=== PATIENT | female | born 1975 | race Caucasian/White ===

== ENCOUNTER → 2017-11-14 14:22 | Outpatient (CLI) | payer OTHER, SELFPAY ==
[2017-11-14 15:39] LABS: Add Manual Diff / Slide Review NO; Basophils Percent Auto 0.2 % (0-2); Eosinophils Percent Auto 2.2 % (2-4); Hematocrit 40.2 % (36-46); Hemoglobin 13.8 g/dL (12.0-16.0); Lymphocytes Percent Auto 26.8 % (25-40); Mean Corpuscular HGB Conc 34.5 % (30-36); Mean Corpuscular Hemoglobin 30.9 PG (26-34); Mean Corpuscular Volume 89.5 fL (80-100); Neutrophils Absolute Auto 7500 /uL (3000-5900); Neutrophils Percent Auto 64.8 % (50-75); Platelet Count 264 X10^3/uL (150-400); Red Blood Cell Count 4.49 X10^6/uL (4.0-5.2); White Blood Cell Count 11.7 X10^3/uL (4.5-11.0)
[2017-11-14 18:12] LABS: Alanine Aminotransferase 32 IU/L (9-52); Albumin 4.5 g/dL (3.5-5.0); Albumin Globulin Ratio 1.9 (1.0-2.8); Alkaline Phosphatase 62 U/L (38-126); Aspartate Aminotransferase 22 IU/L (14-36); BUN Creatinine Ratio 18.8 (6-22); Bilirubin Total 0.4 mg/dL (0.2-1.3); Calcium 9.7 mg/dL (8.4-10.2); Estimated Glomerular Filt Rate > 60.0 mL/min (>60); Globulin 2.4 g/dL (1.7-4.1); Glucose 78 mg/dL (70-100); HEMOLYSIS < 15 (0-50); Potassium 4.5 mmol/L (3.4-5.1); Sodium 141 mmol/L (137-145); Total Protein 6.9 g/dL (6.3-8.2)
[2017-11-14 18:38] LABS: Thyroid Stimulating Hormone 1.24 uIU/mL (0.47-4.68)
== END ==
PROVIDERS: Family Provider Family Medicine; PCP Family Medicine; Visit Provider Internal Medicine
DX: G47.8 Other sleep disorders (principal); F41.8 Other specified anxiety disorders
CPT/HCPCS: 36415; 80053; 84443; 85025

== ENCOUNTER 2018-05-05 07:11 | Emergency (ER) | payer OTHER, SELFPAY ==
[2018-05-05 07:34] VITALS: BP 90/62; PULSE 86; RESP 18; TEMP 36.7; O2SAT 97; BMI 33.4
--- NOTE | 2018-05-05 08:23 | ED.EXTPRO ---
HPI - Extremity Problem General Chief complaint: Extremity Problem,Nontraumatic Stated complaint: left leg pain Time Seen by Provider: 05/05/18 07:51 Source: patient and family Mode of arrival: ambulatory Limitations: no limitations History of Present Illness HPI Narrative: 42-year-old smoking female presents with a chief complaint of severe left hip and lateral thigh pain since last evening. She denies any specific trauma but does state that the pain started while having intercourse and she was moving her leg into an awkward position. She felt a pop and has had pain ever since. Her pain is worse with motion and improves with rest. She denies any numbness, tingling or weakness. She denies any trouble bowel or bladder control. MD Complaint: extremity pain Onset (ago): hour(s) Pain Consistency: constant Location: left Quality: burning and stabbing Radiation: distal Relieving factors: rest Exacerbating factors: walking and exertion Associated symptoms: denies other symptoms Related Data Previous Rx's Medication Instructions Recorded bupropion HCl SR 150 mg tablet,12 150 mg PO QAM #90 tab 12/06/17 hr sustained-release citalopram 40 mg tablet 40 mg PO QDAY #90 tab 12/06/17 norethindrone acetate 1 mg-ethinyl 1 tab PO QDAY #3 tab 12/06/17 estradiol 20 mcg tablet spironolactone 50 mg tablet 50 mg PO DAILY #90 tab 03/17/18 cyclobenzaprine 10 mg PO TID PRN #14 tab 05/05/18 ketorolac 10 mg PO Q6H PRN #14 tab 05/05/18 Allergies Allergy/AdvReac Type Severity Reaction Status Date / Time codeine Allergy Mild ITCHY Verified 05/05/18 07:45 Review of Systems Review of Systems All systems reviewed & are unremarkable except as noted in HPI and below Constitutional Denies chills, Denies fever(s), Denies lethargy and Denies weakness Eyes Denies change in vision, Denies eye discharge, Denies irritation and Denies loss of vision ENT Ears, Nose, Mouth, and Throat: Denies change in voice, Denies neck pain and Denies sore throat Cardiovascular Denies chest pain, Denies irregular heart rhythm, Denies lightheadedness, Denies palpitations, Denies dyspnea, Denies dyspnea on exertion and Denies orthopnea Respiratory Denies cough, Denies dyspnea, Denies dyspnea on exertion and Denies wheezing Gastrointestinal Gastrointestinal: Denies abdominal pain, Denies change in bowel habits, Denies diarrhea, Denies nausea and Denies vomiting Genitourinary Denies hematuria, Denies flank pain, Denies urinary incontinence and Denies urinary urgency Musculoskeletal Reports limited range of motion, Reports muscle cramps and Denies neck pain Integumentary/Breasts Denies pruritus, Denies erythema, Denies rash and Denies wounds Neurologic Denies confusion, Denies loss of vision and Denies weakness Psychiatric Denies anxiety, Denies confusion, Denies depression, Denies homicidal ideation and Denies suicidal ideation Endocrine Denies palpitations Hematologic/Lymphatic Denies easy bruising Allergic/Immunologic Denies wheezing [facility] Medical History Anxiety (Chronic) Depression (Chronic) Acne (Resolved) HPV (human papilloma virus) infection (Resolved) Surgical History No history of previous surgery (Resolved 06/2014) Social History Smoking Status: Current every day smoker Exam Narrative Exam Narrative: GENERAL: 42-year-old female is anxious and upset, obviously in pain, clutching her left hip and thigh HEAD: Atraumatic. Normocephalic. No temporal or scalp tenderness. EYES: Pupils equal round and reactive. Extraocular motions intact. No scleral icterus. No injection or drainage. ENT: Nose without bleeding, purulent drainage or septal hematoma. Throat without erythema, tonsillar hypertrophy or exudate. Uvula midline. Airway patent. NECK: Trachea midline. No JVD or lymphadenopathy. Supple, nontender, no meningeal signs. CARDIOVASCULAR: Regular rate and rhythm without murmurs, gallops, or rubs. RESPIRATORY: Clear to auscultation. Breath sounds equal bilaterally. No wheezes, rales, or rhonchi. GASTROINTESTINAL: Abdomen soft, non-tender, nondistended. No hepato-splenomegaly, or palpable masses. No guarding. EXTREMITIES: No shortening or external rotation noted. Patient has full and surprisingly painless range of motion at the hip. She has no pain with axial loading of her lower extremity through the knee and hip. There is no obvious deformity. There is no loss of sensation or pulse BACK: Nontender without deformity or crepitance. No flank tenderness. NEURO: AOx3. SKIN: No rash or erythema. Initial Vital Signs Initial Vital Signs: Vital Signs Temperature 98.0 F 05/05/18 07:34 Pulse Rate 86 05/05/18 07:34 Respiratory Rate 18 05/05/18 07:34 Blood Pressure 90/62 05/05/18 07:34 Pulse Oximetry 97 05/05/18 07:34 Course Orders Ordered: Discontinued Medications Ketorolac Tromethamine (Toradol) 60 mg IM NOW ONE Stop: 05/05/18 10:04 Last Admin: 05/05/18 10:21 Dose: 60 mg Vital Signs - 8 hr 05/05/18 07:34 Temperature 98.0 F Pulse Rate 86 Respiratory Rate 18 Blood Pressure 90/62 Pulse Oximetry 97 Discharge Plan Departure Patient Disposition: Home Clinical Impression: Hip strain Discharge Date/Time: 05/05/18 10:58 Interventions: ED Discharge Assessment Last Done: 05/05/18 10:58 Instructions: Muscle Strain Activity Restrictions/Additional Instructions: *You have been diagnosed with [ left hip strain] *What to do: *Take medications as directed: Her prescriptions have been electronically transmitted to [facility] at your request *Follow up with your primary care provider in 2-3 days, call for an appointment. Let them know you were seen in the Emergency Department and that we ask that you be seen in follow up *Return to ER if you should have any new, worsening or concerning symptoms Prescriptions: New cyclobenzaprine 10 mg tablet 10 mg PO TID PRN (Reason: muscle spasm) Qty: 14 RF: 0 ketorolac 10 mg tablet 10 mg PO Q6H PRN (Reason: pain) Qty: 14 RF: 0 No Action norethindrone ac-eth estradiol [June07/16 (21)] 1-20 mg-mcg tablet 1 tab PO QDAY Qty: 3 RF: 0 bupropion HCl [Wellbutrin SR] 150 mg tablet extended release 12 hr 150 mg PO QAM Qty: 90 RF: 0 citalopram [Celexa] 40 mg tablet 40 mg PO QDAY Qty: 90 RF: 0 spironolactone 50 mg tablet 50 mg PO DAILY Qty: 90 RF: 0 Referrals: Cousins,Eleanor, MD [Physician] -
--- NOTE | 2018-05-05 08:50 | DI.RAD.S_ITS ---
PROCEDURE: XR HIP W PEL IF DONE LT 2V INDICATIONS: injury last night, L hip pain TECHNIQUE: AP pelvis with lateral view(s) of the left hip(s). COMPARISON: None. FINDINGS: Bones: Mild left hip joint osteoarthritis is seen. No fractures or dislocations. No evidence of avascular necrosis. Pelvic ring appears intact. No suspicious bony lesions. Soft tissues: The visualized bowel gas pattern is normal. No suspicious soft tissue calcifications. IMPRESSION: Mild left hip joint osteoarthritis. No hip fracture or dislocation. Dictated by: Ab Manuel M.D. on 05/05/2018 at 9:34 Approved by: Ab Manuel M.D. on 05/05/2018 at 9:35
[2018-05-05 10:19] VITALS: BP 100/56; PULSE 64; RESP 16; O2SAT 98
[2018-05-05] MEDS: KETOROLAC 60 MG/2 ML VIAL IM (10:21)
== END 2018-05-05 10:58 | disposition home or self-care (01) ==
PROVIDERS: Emergency Provider Emergency Medicine
DX: S76.012A Strain of muscle, fascia and tendon of left hip, initial encounter (principal); X50.1XXA Overexertion from prolonged static or awkward postures, initial encounter
CPT/HCPCS: 73502; 96372; 99282; 99283; J1885

== ENCOUNTER → 2019-04-06 07:12 | Outpatient (CLI) | payer OTHER, SELFPAY ==
[2019-04-06 09:10] LABS: Hematocrit 41.4 % (36-46); Hemoglobin 14.1 g/dL (12.0-16.0); Mean Corpuscular HGB Conc 34.1 % (30-36); Mean Corpuscular Hemoglobin 31.3 PG (26-34); Mean Corpuscular Volume 91.9 fL (80-100); Platelet Count 282 X10^3/uL (150-400); Red Blood Cell Count 4.51 X10^6/uL (4.0-5.2); Red Cell Distribution Width 12.4 % (11.6-14.8); White Blood Cell Count 7.1 X10^3/uL (4.5-11.0)
[2019-04-06 09:28] LABS: Alanine Aminotransferase 21 IU/L (9-52); Albumin 4.1 g/dL (3.5-5.0); Albumin Globulin Ratio 1.5 (1.0-2.8); Alkaline Phosphatase 47 U/L (38-126); Aspartate Aminotransferase 24 IU/L (14-36); BUN Creatinine Ratio 21.4 (6-22); Bilirubin Total 0.4 mg/dL (0.2-1.3); Blood Urea Nitrogen 15 mg/dL (7-17); Calcium 8.9 mg/dL (8.4-10.2); Carbon Dioxide 28 mmol/L (22-32); Chloride 106 mmol/L (98-107); Cholesterol 132 mg/dL (140-199); Estimated Glomerular Filt Rate > 60.0 mL/min (>60); Globulin 2.7 g/dL (1.7-4.1); Glucose 91 mg/dL (70-100); HDL Cholesterol 46 mg/dL (40-60); HEMOLYSIS < 15 (0-50); LDL Cholesterol Calculated 74 mg/dL (<100); Potassium 4.1 mmol/L (3.4-5.1); Sodium 140 mmol/L (137-145); Total Protein 6.8 g/dL (6.3-8.2); Triglycerides 60 mg/dL (35-150)
== END ==
PROVIDERS: Visit Provider Nurse Practitioner Family
DX: Z00.00 Encounter for general adult medical examination without abnormal findings (principal); Z13.6 Encounter for screening for cardiovascular disorders
CPT/HCPCS: 36415; 80053; 80061; 85027

== ENCOUNTER → 2019-04-11 16:04 | Outpatient (CLI) | payer OTHER, SELFPAY | PROVIDERS: Visit Provider Nurse Practitioner Family | DX: Z12.31 Encounter for screening mammogram for malignant neoplasm of breast (principal) ==

== ENCOUNTER → 2019-05-01 12:35 | Outpatient (CLI) | payer OTHER, SELFPAY ==
--- NOTE | 2019-05-01 | DI.US.S_ITS ---
ULTRASOUND OF LEFT AXILLA: 05/01/2019 CLINICAL: Palpable left axilla lump. Comparison is made to exam dated: 05/01/2019 [facility]. Real-time ultrasound of the left axilla was performed on the area of interest. IMPRESSION: NEGATIVE There is no sonographic evidence of malignancy. There is no abnormality seen in the left axilla to correspond with the palpable abnormality in the left axilla, however, clinical followup is recommended. A 1 year screening mammogram is recommended. This exam was interpreted at Station ID: [id number]. Electronically Signed By: Alexander durant/bhargav:05/01/2019 15:30:35 letter sent: Clinical Evaluation Ultrasound BI-RADS: 1 Negative
--- NOTE | 2019-05-01 12:36 | DI.MG.S_ITS ---
BILATERAL DIGITAL DIAGNOSTIC MAMMOGRAM 3D/2D: 05/01/2019 CLINICAL: Baseline exam. Left lump in axilla. No prior exams were available for comparison. There are scattered fibroglandular elements in both breasts. No significant masses, calcifications, or other findings are seen in either breast. IMPRESSION: INCOMPLETE: NEEDS ADDITIONAL IMAGING EVALUATION There is no abnormality seen in the left axilla to correspond with the palpable abnormality in the left axilla, however, ultrasound is recommended. This exam was interpreted at Station ID: [id number]. NOTE: For mammograms, a report in lay terms will be sent to the patient. Approximately 15% of breast malignancies will not be visualized mammographically. In the management of a palpable breast mass, a negative mammogram must not discourage biopsy of a clinically suspicious lesion. Electronically Signed By: Alexander durant/bhargav:05/01/2019 13:36:46 ACR BI-RADS Category 0: Incomplete 3340F
== END ==
PROVIDERS: PCP Nurse Practitioner Family; Visit Provider Nurse Practitioner Family
DX: R92.8 Other abnormal and inconclusive findings on diagnostic imaging of breast (principal); N63.32 Unspecified lump in axillary tail of the left breast
CPT/HCPCS: 76882; 77066; G0279

== ENCOUNTER → 2021-01-21 07:23 | Outpatient (CLI) | payer OTHER, SELFPAY ==
[2021-01-21 08:12] LABS: Hematocrit 40.3 % (36-46); Hemoglobin 13.5 g/dL (12.0-16.0); Mean Corpuscular HGB Conc 33.4 % (30-36); Mean Corpuscular Hemoglobin 30.7 PG (26-34); Mean Corpuscular Volume 91.7 fL (80-100); Platelet Count 328 X10^3/uL (150-400); Red Cell Distribution Width 12.7 % (11.6-14.8); White Blood Cell Count 6.9 X10^3/uL (4.5-11.0)
[2021-01-21 08:45] LABS: Alanine Aminotransferase 21 IU/L (<35); Albumin 4.2 g/dL (3.5-5.0); Albumin Globulin Ratio 1.4 (1.0-2.8); Alkaline Phosphatase 55 U/L (38-126); Aspartate Aminotransferase 27 IU/L (14-36); BUN Creatinine Ratio 17.4 (6-22); Bilirubin Total 0.5 mg/dL (0.2-1.3); Blood Urea Nitrogen 12 mg/dL (7-17); Calcium 9.2 mg/dL (8.4-10.2); Carbon Dioxide 29 mmol/L (22-32); Chloride 105 mmol/L (98-107); Cholesterol 166 mg/dL (140-199); Estimated Glomerular Filt Rate > 60.0 mL/min (>60); Glucose 126 mg/dL (70-100); HDL Cholesterol 62 mg/dL (40-60); HEMOLYSIS < 15 (0-50); LDL Cholesterol Calculated 90 mg/dL (<100); Potassium 4.2 mmol/L (3.4-5.1); Sodium 140 mmol/L (137-145); Total Protein 7.2 g/dL (6.3-8.2); Triglycerides 71 mg/dL (35-150)
[2021-01-21 16:08] LABS: Hemoglobin A1C% w Est Avg Glu 5.4 % (4.0-6.0)
== END ==
PROVIDERS: PCP Nurse Practitioner Family; Referring Provider Nurse Practitioner Family; Visit Provider Nurse Practitioner Family
DX: Z00.00 Encounter for general adult medical examination without abnormal findings (principal); Z13.6 Encounter for screening for cardiovascular disorders; R73.09 Other abnormal glucose
CPT/HCPCS: 36415; 80053; 80061; 83036; 85027

== ENCOUNTER → 2021-06-09 16:11 | Outpatient (CLI) | payer OTHER, SELFPAY ==
--- NOTE | 2021-06-09 16:12 | DI.MG.S_ITS ---
BILATERAL DIGITAL SCREENING MAMMOGRAM 3D/2D WITH CAD: 06/09/2021 CLINICAL: Routine screening. Comparison is made to exams dated: 05/01/2019 ultrasound and 05/01/2019 mammogram - [facility]. There are scattered fibroglandular elements in both breasts. Current study was also evaluated with a Computer Aided Detection (CAD) system. No significant masses, calcifications, or other findings are seen in either breast. There has been no significant interval change. IMPRESSION: NEGATIVE There is no mammographic evidence of malignancy. A 1 year screening mammogram is recommended. This exam was interpreted at Station ID: [id number]. NOTE: For mammograms, a report in lay terms will be sent to the patient. Approximately 15% of breast malignancies will not be visualized mammographically. In the management of a palpable breast mass, a negative mammogram must not discourage biopsy of a clinically suspicious lesion. Electronically Signed By: Jessenia hill/bhargav:06/09/2021 17:11:14 letter sent: Normal Exam ACR BI-RADS Category 1: Negative [id number]
== END ==
PROVIDERS: PCP Nurse Practitioner Family; Referring Provider Nurse Practitioner Family; Visit Provider Nurse Practitioner Family
DX: Z12.31 Encounter for screening mammogram for malignant neoplasm of breast (principal)
CPT/HCPCS: 77063; 77067

== ENCOUNTER → 2021-08-31 07:35 | Outpatient (CLI) | payer OTHER, SELFPAY ==
[2021-08-31 09:16] LABS: BUN Creatinine Ratio 18.9 (6-22); Blood Urea Nitrogen 14 mg/dL (7-17); Calcium 8.9 mg/dL (8.4-10.2); Carbon Dioxide 28 mmol/L (22-32); Chloride 106 mmol/L (98-107); Estimated Glomerular Filt Rate > 60.0 mL/min (>60); Glucose 103 mg/dL (70-100); HEMOLYSIS < 15 (0-50); Potassium 4.3 mmol/L (3.4-5.1); Sodium 138 mmol/L (137-145)
[2021-08-31 09:52] LABS: TSH w/ Reflex to FT4 1.73 uIU/mL (0.47-4.68)
== END ==
PROVIDERS: PCP Nurse Practitioner Family; Referring Provider Nurse Practitioner Family; Visit Provider Nurse Practitioner Family
DX: R73.9 Hyperglycemia, unspecified (principal); F41.8 Other specified anxiety disorders
CPT/HCPCS: 36415; 80048; 84443

== ENCOUNTER → 2021-12-18 12:11 | Outpatient (CLI) | payer OTHER, SELFPAY ==
--- NOTE | 2021-12-18 12:14 | DI.CT.S_ITS ---
PROCEDURE: CT SOFT TISSUE NECK W CON INDICATIONS: dysphagia/sensation of mass in throat TECHNIQUE: After the administration of intravenous contrast, 3.0 mm axial sections acquired from the sella to the aortic arch. Additional oblique axial 3.0 mm sections acquired through the pharynx. 3 mm thick coronal and sagittal reformats were generated. For radiation dose reduction, the following was used: automated exposure control. COMPARISON: None. FINDINGS: Image quality: Excellent. Lymph nodes: No enlarged lymph nodes seen throughout the neck. Vessels: Visualized vasculature appears patent. Neck spaces: [place] tonsils and the soft palate and the uvula all appear enlarged. There is also mild enlargement of the lingual and pharyngeal tonsils. The oropharynx, nasopharynx, and pharynx demonstrate no mucosal lesions. The vocal cords, false vocal cords, pyriform sinuses, epiglottis, vallecula, and tongue base all appear normal. Extramucosal spaces appear unremarkable. Glands: The parotid and submandibular glands appear normal. Thyroid gland uniform attenuation. Miscellaneous: Visualized brain and orbits appear normal. Lung apices appear clear. Superficial soft tissues appear normal. Bones: No suspicious bony lesions. Visualized sinuses and mastoids appear unremarkable. IMPRESSION: Thickening and enlargement of the soft palate and uvula, along with enlargement of the palatine tonsils, lingual tonsils, and pharyngeal tonsils. Probable pharyngeal mucosal thickening as well. Findings are favored to represent mucositis with some reactive tonsillar lymphadenopathy, although a primary lymphoproliferative disorder cannot be strictly excluded. Follow-up to clinical and perhaps radiographic resolution recommended. Dictated by: Doc Reyes M.D. on 12/18/2021 at 12:52 Approved by: Doc Reyes M.D. on 12/18/2021 at 13:04
== END ==
PROVIDERS: PCP Registered Nurse Diabetes Educator; Referring Provider Registered Nurse Diabetes Educator; Visit Provider Registered Nurse Diabetes Educator
DX: J35.1 Hypertrophy of tonsils (principal); K13.79 Other lesions of oral mucosa; R13.10 Dysphagia, unspecified
CPT/HCPCS: 70491

== ENCOUNTER → 2022-08-06 06:57 | Outpatient (CLI) | payer OTHER, SELFPAY ==
[2022-08-06 07:41] LABS: Add Manual Diff / Slide Review NO; Basophils Absolute Auto 0 /uL (0-100); Basophils Percent Auto 0.2 % (0-2); Eosinophils Absolute Auto 200 /uL (0-450); Eosinophils Percent Auto 2.3 % (2-4); Hematocrit 39.9 % (36-46); Hemoglobin 13.4 g/dL (12.0-16.0); Lymphocytes Absolute Auto 1900 /uL (1100-4500); Lymphocytes Percent Auto 23.9 % (25-40); Mean Corpuscular HGB Conc 33.5 % (30-36); Mean Corpuscular Hemoglobin 30.2 PG (26-34); Mean Corpuscular Volume 90.3 fL (80-100); Monocytes Absolute Auto 600 /uL (0-900); Neutrophils Absolute Auto 5300 /uL (1500-7000); Neutrophils Percent Auto 66.6 % (50-75); Platelet Count 282 X10^3/uL (150-400); Red Blood Cell Count 4.42 X10^6/uL (4.0-5.2); Red Cell Distribution Width 12.7 % (11.6-14.8); White Blood Cell Count 7.9 X10^3/uL (4.5-11.0)
[2022-08-06 08:02] LABS: Alanine Aminotransferase 21 IU/L (<35); Albumin 4.1 g/dL (3.5-5.0); Albumin Globulin Ratio 1.6 (1.0-2.8); Alkaline Phosphatase 59 U/L (38-126); Aspartate Aminotransferase 23 IU/L (14-36); BUN Creatinine Ratio 20.5 (6-22); Bilirubin Total 0.3 mg/dL (0.2-1.3); Blood Urea Nitrogen 15 mg/dL (7-17); Calcium 8.7 mg/dL (8.4-10.2); Carbon Dioxide 28 mmol/L (22-32); Chloride 103 mmol/L (98-107); Cholesterol 157 mg/dL (140-199); Estimated Glomerular Filt Rate > 60 mL/min (>60); Globulin 2.6 g/dL (1.7-4.1); Glucose 116 mg/dL (70-100); HDL Cholesterol 65 mg/dL (40-60); HEMOLYSIS < 15 (0-50); LDL Cholesterol Calculated 81 mg/dL (<100); Lipase 68 U/L (23-300); Potassium 4.5 mmol/L (3.4-5.1); Sodium 138 mmol/L (137-145); Total Protein 6.7 g/dL (6.3-8.2); Triglycerides 55 mg/dL (35-150)
[2022-08-06 08:30] LABS: TSH w/ Reflex to FT4 1.11 uIU/mL (0.47-4.68)
== END ==
PROVIDERS: PCP Registered Nurse Diabetes Educator; Referring Provider Registered Nurse Diabetes Educator; Visit Provider Registered Nurse Diabetes Educator
DX: R73.01 Impaired fasting glucose (principal); Z00.00 Encounter for general adult medical examination without abnormal findings; R07.81 Pleurodynia; R10.9 Unspecified abdominal pain
CPT/HCPCS: 36415; 80053; 80061; 83690; 84443; 85025

== ENCOUNTER → 2022-08-13 08:46 | Outpatient (CLI) | payer OTHER, SELFPAY ==
--- NOTE | 2022-08-13 08:47 | DI.RAD.S_ITS ---
PROCEDURE: XR RIBS RT MIN 3V W CXR 1V INDICATIONS: eval Right rib pain TECHNIQUE: 3 views of the right ribs were acquired, along with a single view chest. COMPARISON: [facility], CR, XR CHEST 2 VIEWS, 02/15/2020, 8:16. FINDINGS: Surgical changes and devices: None. Bones and chest wall: No fractures or dislocations. No suspicious bony lesions. Overlying soft tissues appear unremarkable. Lungs and pleura: No pleural effusions or pneumothorax. Lungs appear clear. Mediastinum: Mediastinal contours appear normal. Heart size is normal. IMPRESSION: No displaced right-sided rib fracture. No acute cardiopulmonary abnormality. Dictated by: Kris Winston M.D. on 08/13/2022 at 9:30 Approved by: Kris Winston M.D. on 08/13/2022 at 9:36
--- NOTE | 2022-08-13 08:47 | DI.RAD.S_ITS ---
PROCEDURE: XR CERVICAL SPINE 4V OR 5V INDICATIONS: eval pain posterior R lower ribs/thoracic region/RUE numb TECHNIQUE: 5 views of the cervical spine acquired. COMPARISON: None. FINDINGS: Bones: No fractures or dislocations to the T1 level. Oblique images demonstrate no bony foraminal stenoses. There is straightening of the normal cervical lordosis. Craniovertebral relationships normal. Disc space narrowing and anterior osteophytes noted in the lower cervical spine Soft tissues: No prevertebral soft tissue swelling. IMPRESSION: Degenerative disc disease and arthropathy in the lower cervical spine without evidence of osseous foraminal stenosis Approved by: Artemio Corarles M.D. on 08/13/2022 at 10:06
--- NOTE | 2022-08-13 08:47 | DI.RAD.S_ITS ---
PROCEDURE: XR THORACIC SPINE 3V INDICATIONS: eval pain posterior R lower ribs/thoracic region/RUE numb TECHNIQUE: 3 views of the thoracic spine were acquired. COMPARISON: None. FINDINGS: Bones: No fractures or dislocations. No suspicious bony lesions. 12 pairs of ribs are noted, and appear intact where visualized. Disc space narrowing and lateral osteophytes noted Soft tissues: No paravertebral stripe thickening. IMPRESSION: Mild degenerative disc disease. No fracture or traumatic malalignment Approved by: Artemio Corrales M.D. on 08/13/2022 at 10:14
== END ==
PROVIDERS: PCP Registered Nurse Diabetes Educator; Referring Provider Registered Nurse Diabetes Educator; Visit Provider Registered Nurse Diabetes Educator
DX: M47.812 Spondylosis without myelopathy or radiculopathy, cervical region (principal); M50.30 Other cervical disc degeneration, unspecified cervical region; M51.34 Other intervertebral disc degeneration, thoracic region; R07.81 Pleurodynia; R10.9 Unspecified abdominal pain; R20.0 Anesthesia of skin
CPT/HCPCS: 71101; 72050; 72072

== ENCOUNTER → 2022-08-17 16:42 | Outpatient (CLI) | payer OTHER, SELFPAY ==
--- NOTE | 2022-08-17 | DI.MG.S_ITS ---
BILATERAL DIGITAL SCREENING MAMMOGRAM 3D/2D WITH CAD: 08/17/2022 CLINICAL: Routine screening. Family history of breast cancer. Comparison is made to exam dated: 06/09/2021 mammogram - [facility]. There are scattered areas of fibroglandular density in both breasts (category b / 25%-50% glandular tissue). Current study was also evaluated with a Computer Aided Detection (CAD) system. No significant masses, calcifications, or other findings are seen in either breast. There has been no significant interval change. IMPRESSION: NEGATIVE There is no mammographic evidence of malignancy. A 1 year screening mammogram is recommended. Based on the Tyrer Cuzick model (a risk assessment model) the patient's lifetime risk is 7.5% and her 10 year risk is 1.6%. According to the ACR, ACS, and NCCN guidelines, an annual breast MRI exam along with mammogram is recommended if the patient's lifetime risk is 20% or greater. This exam was interpreted at Station ID: [id number]. NOTE: For mammograms, a report in lay terms will be sent to the patient. Approximately 15% of breast malignancies will not be visualized mammographically. In the management of a palpable breast mass, a negative mammogram must not discourage biopsy of a clinically suspicious lesion. Electronically Signed By: Ifeanyi ryan/bhargav:08/18/2022 07:47:30 letter sent: Normal Exam ACR BI-RADS Category 1: Negative [id number]
== END ==
PROVIDERS: PCP Registered Nurse Diabetes Educator; Referring Provider Registered Nurse Diabetes Educator; Visit Provider Registered Nurse Diabetes Educator
DX: Z12.31 Encounter for screening mammogram for malignant neoplasm of breast (principal); Z80.3 Family history of malignant neoplasm of breast
CPT/HCPCS: 77063; 77067

== ENCOUNTER → 2022-10-13 14:51 | Outpatient (CLI) | payer OTHER, SELFPAY ==
[2022-10-13 17:31] LABS: Influenza A - CEPHEID Flu A NEGATIVE (NEGATIVE); Influenza B - CEPHEID Flu B NEGATIVE (NEGATIVE); Respiratory Syncytial Virus Negative (Negative)
[2022-10-13 17:38] LABS: COVID-19 CEPHEID 4-PLEX PCR Negative (Negative)
== END ==
PROVIDERS: PCP Registered Nurse Diabetes Educator; Visit Provider Family Medicine
DX: J02.9 Acute pharyngitis, unspecified (principal); R05.9 Cough, unspecified; R09.89 Other specified symptoms and signs involving the circulatory and respiratory systems
CPT/HCPCS: 0241U

== ENCOUNTER 2023-06-07 12:08 | Day surgery (SDC) | payer OTHER, SELFPAY ==
[2023-06-07] MEDS: LACTATED RINGERS 1,000 ML 42 ML IV (12:19)
[2023-06-07 12:27] VITALS: BMI 38.0
[2023-06-07 12:32] VITALS: BP 119/85; PULSE 79; RESP 19; TEMP 36.6; O2SAT 97
--- NOTE | 2023-06-07 13:12 | P.HP_ITS ---
History of Present Illness History of Present Illness Date Patient Seen: 06/07/23 Time Patient Seen: 13:12 Chief complaint: [facility] Narrative: The patient presents for colorectal screening. They have never had any previous examination for such. No personal or family history of colon cancer. On further history denies any recent gastrointestinal symptoms. No nausea, vomiting, abdominal pain, loss of appetite, unexplained weight loss, change in bowel habits, or blood per rectum. [facility] Medical History Acne Anxiety Cervix abnormality Depression Encounter for routine gynecological examination (01/20/21) Encounter for wellness examination in adult (01/20/21) Greater trochanteric bursitis of right hip (~2017) History of abnormal cervical Pap smear HPV (human papilloma virus) infection Left shoulder pain (10/2018) Medication refill Surgical History History of cervical biopsy No history of previous surgery (06/2014) Social History household members: spouse Smoking Status: Former smoker quit status: considering quitting (Patient declines smoking cessation handout) second hand exposure: Yes alcohol intake: current substance use type: does not use Meds Home Medications and Allergies Home Medications Medication Instructions Recorded Confirmed Type acetaminophen 500 mg tablet 1,000 mg PO QID PRN Pain (Scale 03/23/19 06/07/23 History (Tylenol Extra Strength) Score 4-6) hydroxyzine pamoate 25 mg capsule 25 mg PO BID PRN panic #60 caps 07/29/21 06/07/23 Rx bupropion HCl 300 mg 24 hr tablet, 300 mg PO QAM #90 tabs 08/11/22 06/07/23 Rx extended release (Wellbutrin XL) paroxetine HCl 20 mg tablet 20 mg PO DAILY #90 tabs 08/11/22 06/07/23 Rx Allergies Allergy/AdvReac Type Severity Reaction Status Date / Time codeine Allergy Mild ITCHY Verified 10/13/22 14:41 Exam Vital Signs (past 8 hours): - 06/07/23 12:32 Temperature 97.8 F Pulse Rate 79 Respiratory Rate 19 Blood Pressure 119/85 Pulse Oximetry 97 Oxygen Delivery Method Room Air Oxygen Delivery Method Room Air Narrative Exam Narrative: General adult woman alert oriented no acute distress Chest nonlabored respiration Extremities warm well perfused Assessment & Plan Assessment & Plan narrative: The patient requires colorectal screening and colonoscopy is recommended. Technical details were discussed. Risks, benefits, alternatives explained. Risks including but not limited to myocardial infarction, aspiration, bleeding, pain, missed lesion, incomplete examination, need for further radiographic studies, colonic perforation, and need for major abdominal surgery were discussed. All questions were answered to their satisfaction, and they are in agreement with this plan.
--- NOTE | 2023-06-07 13:14 | P.OP.COLON_ITS ---
Operative Date/Time/Diagnoses Date of procedure: 06/07/23 Time of procedure: 13:39 Pre-op diagnosis: Colorectal screening Procedure & Clinicians Study performed: Colonoscopy Same procedure as scheduled: Yes Indications: Colorectal screening Surgeon: Danny Starks Procedure Notes Procedure in detail: The history and physical was performed/updated and the patient is ASA class is 2. The procedure was discussed in detail with the patient. Potential risks complications including infection, bleeding, missed diagnosis, perforation, need for surgery, and were explained. Their questions were answered and informed consent was obtained. Patient was brought to the procedure room and placed standard monitoring equipment. The patient's vital signs were monitored continuously throughout the entire procedure. Prior to starting time-out was performed. The patient was placed in the left lateral recumbent position. Procedural sedation was administered by anesthesia. Examination began with a thorough inspection of the perianal area there was no evidence of fissures, fistulae, external hemorrhoids or cutaneous malignancy. The colonoscopy scope was then placed into the anal canal and was advanced to the cecum, which was identified by the ileocecal valve , the appendiceal orifice and the confluence of the taenia. The scope was then slowly withdrawn examining colon thoroughly in all directions, irrigating it of any residual stool. The scope was retroflexed within the rectum The patient tolerated the procedure well. They will be discharged once criteria are met. The prep was of good/excellent quality. The withdrawl time was 7 minutes. FINDINGS * Unremarkable colonoscopy. Normal healthy colon. No masses polyps or inflammation. Specimen(s): none sent Impression: Normal colonoscopy Post-procedure Recommendations: Colonoscopy in 10 years Disposition: same day surgery
[2023-06-07 13:33] VITALS: BP 119/88; PULSE 82; RESP 10; TEMP 36.4; O2SAT 95
[2023-06-07 13:38] VITALS: BP 116/84; PULSE 72; RESP 16; O2SAT 100
[2023-06-07 13:43] VITALS: BP 117/67; PULSE 68; RESP 15; O2SAT 99
[2023-06-07 13:55] VITALS: BP 105/77; PULSE 67; RESP 16; O2SAT 99
== END 2023-06-07 14:01 | disposition home or self-care (01) ==
PROVIDERS: PCP Registered Nurse Diabetes Educator; Referring Provider Surgery; Visit Provider Surgery
PROC: 0DJD8ZZ Inspection of Lower Intestinal Tract, Via Natural or Artificial Opening Endoscopic (ICD-10-PCS; CPT 45378; principal; 2023-06-07 13:15)
DX: Z12.11 Encounter for screening for malignant neoplasm of colon (principal)
CPT/HCPCS: 45378; J2704

== ENCOUNTER 2023-11-03 16:59 | Observation (INO) | payer OTHER, SELFPAY ==
[2023-11-03] VITALS (14 sets, daily range): BP systolic 110–158; BP diastolic 62–95; PULSE 63–83; RESP 13–22; TEMP 36.2–36.8; O2SAT 96–99; BMI 40.3; BMI 38.7
--- NOTE | 2023-11-03 17:14 | DI.RAD.S_ITS ---
PROCEDURE: XR CHEST 1V INDICATIONS: Possible stroke TECHNIQUE: One view of the chest was acquired. COMPARISON: [facility], CHEST 2 VIEW, 08/18/2016, 14:53. [facility], CHEST 2 VIEW, 04/06/2009, 22:47. FINDINGS: Surgical changes and devices: None. Lungs and pleura: Lungs are clear. No pleural effusions or pneumothorax. Mediastinum: Mediastinal contours appear normal. Heart size is normal. Bones and chest wall: No suspicious bony lesions. Overlying soft tissues appear unremarkable. IMPRESSION: No acute cardiopulmonary abnormality is seen. Dictated by: Devante Anderson M.D. on 11/03/2023 at 17:47 Approved by: Devante Anderson M.D. on 11/03/2023 at 17:47
--- NOTE | 2023-11-03 17:15 | DI.CT.S_ITS ---
PROCEDURE: CT HEAD/BRAIN WO CON INDICATIONS: confusion TECHNIQUE: Noncontrast 4.5 mm thick angled axial sections acquired from the foramen magnum to the vertex, with coronal and sagittal reformats. For radiation dose reduction, the following was used: automated exposure control, adjustment of mA and/or kV according to patient size. COMPARISON: [facility], CT, HEAD WITHOUT CONTRAST, 02/12/2011, 16:26. FINDINGS: Image quality: Diagnostic. CSF spaces: Basal cisterns are patent. No extra-axial fluid collections. Ventricles are normal in size and shape. Brain: No midline shift. No intracranial masses or hemorrhage. Bolaños-white matter interface is normal. Skull and face: Calvarium and visualized facial bones are intact, without suspicious lesions. Sinuses: Visualized sinuses and mastoids are clear. IMPRESSION: No acute intracranial pathology. Dictated by: Devante Anderson M.D. on 11/03/2023 at 17:43 Approved by: Devante Anderson M.D. on 11/03/2023 at 17:45
[2023-11-03 17:45] LABS: Add Manual Diff / Slide Review NO; Basophils Absolute Auto 0 /uL (0-100); Basophils Percent Auto 0.4 % (0-2); Eosinophils Absolute Auto 200 /uL (0-450); Hematocrit 39.2 % (36-46); Hemoglobin 13.4 g/dL (12.0-16.0); Lymphocytes Absolute Auto 2700 /uL (1100-4500); Lymphocytes Percent Auto 31.1 % (25-40); Mean Corpuscular HGB Conc 34.2 % (30-36); Mean Corpuscular Hemoglobin 30.7 PG (26-34); Mean Corpuscular Volume 89.9 fL (80-100); Monocytes Absolute Auto 600 /uL (0-900); Monocytes Percent Auto 6.4 % (3-14); Neutrophils Absolute Auto 5300 /uL (1500-7000); Neutrophils Percent Auto 60.1 % (50-75); Platelet Count 298 X10^3/uL (150-400); Red Blood Cell Count 4.37 X10^6/uL (4.0-5.2); Red Cell Distribution Width 12.9 % (11.6-14.8); White Blood Cell Count 8.8 X10^3/uL (4.5-11.0)
[2023-11-03 17:46] LABS: Prothrombin Time 11.3 SECONDS (9.4-12.5)
[2023-11-03 17:48] LABS: PTT Partial Thromboplastin Tim 36 SECONDS (25.1-36.5)
[2023-11-03 17:51] LABS: Alanine Aminotransferase 25 IU/L (<35); Albumin 4.7 g/dL (3.5-5.0); Albumin Globulin Ratio 1.7 (1.0-2.8); Alkaline Phosphatase 62 U/L (38-126); Aspartate Aminotransferase 26 IU/L (14-36); BUN Creatinine Ratio 15.8 (6-22); Bilirubin Total 0.7 mg/dL (0.2-1.3); Blood Urea Nitrogen 16 mg/dL (7-17); Calcium 9.2 mg/dL (8.4-10.2); Carbon Dioxide 26 mmol/L (22-32); Chloride 105 mmol/L (98-107); Creatine Kinase 73 U/L (30-135); Estimated Glomerular Filt Rate > 60 mL/min (>60); Globulin 2.7 g/dL (1.7-4.1); Glucose 115 mg/dL (70-100); HEMOLYSIS < 15 (0-50); Magnesium 2.1 mg/dL (1.6-2.3); Potassium 3.8 mmol/L (3.4-5.1); Sodium 138 mmol/L (137-145); Total Protein 7.4 g/dL (6.3-8.2)
[2023-11-03 18:02] LABS: Troponin I < 0.012 ng/mL (0.01-0.034)
--- NOTE | 2023-11-03 18:24 | ED_ITS ---
HPI - Neuro Symptoms/Deficit General Chief Complaint: Neuro Symptoms/Deficit Stated Complaint: confusion, sent by [facility] Time Seen by Provider: 11/03/23 18:10 History of Present Illness HPI Narrative: 48-year-old female without history of previous stroke, occasional alcohol use, denies drug use, with difficulty with short-term memory since this morning. Proximally 8:00 a.m. she noticed that she would forget what she was doing, while walking in the hallway, while trying to do a task, recurrent episodes through the day today. While in the emergency department she forgot she would she was doing when she was going to the bathroom to provide a urine sample for testing. She is amenable to redirection but has frequent lapses of short-term memory, usually task oriented. She does admit to occasional alcohol use, had a white clot yesterday, no recent bingeing or prior bingeing. Denies drug use. Denies any changes in medications. No recent fevers chills, diarrhea, vomiting, weakness to face arm or leg, numbness to face arm or leg. No history of seizures or shaking episodes. No injury or trauma. No use of blood thinner medications. She denies pain to head, neck, chest, abdomen, pelvis, legs, arms. She has no visual problems. No trouble swallowing. Speech seems clear per daughter historian at bedside. This has not happened to her before. On Anticoagulants: No Related Data Home Medications Medication Instructions Recorded Confirmed acetaminophen 500 mg tablet 1,000 mg PO QID PRN Pain (Scale 03/23/19 11/03/23 (Tylenol Extra Strength) Score 4-6) Previous Rx's Medication Instructions Recorded hydroxyzine pamoate 25 mg capsule 25 mg PO BID PRN panic #60 caps 07/29/21 bupropion HCl 300 mg 24 hr tablet, 300 mg PO QAM #90 tabs 08/11/22 extended release (Wellbutrin XL) paroxetine HCl 20 mg tablet 20 mg PO DAILY #90 tabs 08/11/22 Allergies Allergy/AdvReac Type Severity Reaction Status Date / Time codeine Allergy Mild ITCHY Verified 11/03/23 17:06 Review of Systems Constitutional Constitutional: Denies chills and Denies fever(s) Eyes Eyes: Denies blind spots, Denies blurry vision, Denies change in vision, Denies loss of vision, Denies other visual disturbances and Denies tunnel vision ENT Ears, Nose, Mouth, and Throat: Denies lip swelling and Denies throat swelling Cardiovascular Cardiovascular: Denies chest pain, Denies leg edema and Denies dyspnea Respiratory Respiratory: Denies pain with cough and Denies dyspnea Gastrointestinal Gastrointestinal: Denies abdominal pain, Denies change in bowel habits, Denies nausea and Denies vomiting Genitourinary Genitourinary: Denies hematuria, Denies dysuria and Denies dysuria Musculoskeletal Musculoskeletal: Reports system reviewed and no additional complaints, except as documented, Denies abnormal gait, Denies numbness and Denies tingling Integumentary/Breasts Skin/Breast: Reports system reviewed and no additional complaints, except as documented Neurologic Neurologic: Reports as per HPI, Denies abnormal movements, Denies abnormal speech, Denies abnormal gait, Denies behavioral changes, Denies lack of coordination, Denies localized weakness, Denies loss of vision, Denies numbness, Denies seizure-like activity, Denies sensory deficit and Denies tingling Psychiatric Psychiatric: Denies behavioral changes Hematologic/Lymphatic Hematologic/Lymphatic: Denies easy bleeding and Denies easy bruising On Anticoagulants: No Allergic/Immunologic Allergic/Immunologic: Denies urticaria, Denies lip swelling and Denies throat swelling Patient History Medical History (Updated 11/04/23 @ 08:04 by Carl Benjamin MD) Encounter for wellness examination in adult (01/20/21) Encounter for routine gynecological examination (01/20/21) Cervix abnormality History of abnormal cervical Pap smear Medication refill Greater trochanteric bursitis of right hip (~2017) Left shoulder pain (10/2018) HPV (human papilloma virus) infection Acne Anxiety Depression Surgical History History of cervical biopsy No history of previous surgery (06/2014) Social History household members: spouse Smoking Status: Former smoker quit status: considering quitting (Patient declines smoking cessation handout) second hand exposure: Yes alcohol intake: current substance use type: does not use Smoking Status: Former smoker alcohol intake frequency: a few times a week Substance Use Type: does not use Exam Initial Vital Signs Initial Vital Signs: Vital Signs Temperature 98.2 F 11/03/23 17:06 Pulse Rate 80 11/03/23 17:06 Respiratory Rate 15 11/03/23 17:06 Blood Pressure 158/90 H 11/03/23 17:06 Pulse Oximetry 99 11/03/23 17:06 Oxygen Delivery Method Room Air 11/03/23 17:06 Const General: cooperative HENMT Head: normal to inspection and atraumatic Ears: TM's normal bilaterally Face and sinus: normal facial exam Mouth: oropharynx normal Teeth and gingiva: dentition normal Neck Neck: normal visual inspection Chest Chest: normal inspection of the chest Resp Effort & Inspection: normal respiratory effort, no cough, no retractions and no stridor Auscultation: clear to auscultation bilaterally Cardio Rate: regular rate Rhythm: regular rhythm Heart Sounds: no murmurs GI Inspection: normal to inspection and non-distended Auscultation: normal bowel sounds Other: exam deferred Back/Spine/Pelvis Back: normal to inspection Skin General: no rashes or lesions noted, No ecchymosis and No excoriation Wounds: no wounds Neuro Cranial Nerves: PERRL, EOM intact bilaterally, facial strength normal, tongue midline and able to elevate shoulders bilaterally Cognition: normal cognition Speech: speech normal Gait: normal gait Motor: strength 5/5 throughout Sensory Exam: no sensory deficits noted Coordination: [id number] test normal and [id number] test normal Pupils: Normal pupillary reactivity/response: bilateral Extrem General: normal to inspection and No edema Psych Appearance: grossly normal Mood: not anxious Affect: normal affect Thought Content: normal Other: Daughter at bedside feels her speech is clear and at baseline, and thought content seems clear, though she is concerned as well there seems to be recent short-term memory loss Course Course Decision to Admit Date: 11/03/23 Decision to Admit time: 21:45 Orders Ordered: Discontinued Medications Acetaminophen (Acetaminophen 325 Mg Tablet) 650 mg PO Q6H PRN PRN Reason: Fever/Mild Pain (1-3) Al Hydrox/Mg Hydrox/Simethicone (Mag Hydrox/Alum/Simeth 30 Ml Udc) 30 ml PO Q6HR PRN PRN Reason: Dyspepsia Bupropion HCl (Bupropion Xl 150 Mg Tab) 300 mg PO DAILY MARIELLE Last Admin: 11/04/23 08:39 Dose: 300 mg Documented By: CRISTOFER Hydroxyzine HCl (Hydroxyzine Hcl 25 Mg Tablet) 25 mg PO BID PRN PRN Reason: panic Lorazepam (Lorazepam 0.5 Mg Tablet) 0.5 mg PO PRN PRN PRN Reason: MRI Last Admin: 11/04/23 09:43 Dose: 0.5 mg Documented By: ET Naloxone HCl (Naloxone 0.4 Mg/Ml Vial) 0.2 mg IV Q2MIN PRN PRN Reason: Opiate Reversal Non-Formulary Medication (Hydroxyzine Pamoate) 25 mg PO BID PRN PRN Reason: panic Ondansetron HCl (Ondansetron 4 Mg/2 Ml Inj) 4 mg IV NOW PRN PRN Reason: Nausea And Vomiting Ondansetron HCl (Ondansetron 4 Mg Odt) 4 mg PO Q8HR PRN PRN Reason: Nausea And Vomiting Paroxetine HCl (Paroxetine 20 Mg Tablet) 20 mg PO DAILY COUNT INCLUDES THE [facility] Last Admin: 11/04/23 08:39 Dose: 20 mg Documented By: CRISTOFER Reevaluation(s) Reevaluation #1: 1930, Phone consult intake neurology [place], await call back for consultation. 1999, case discussed with Dr. Ley Neurology [facility]/ [facility], recommends patient have MRI brain without and with contrast, also lumbar puncture but would prefer this study was done after MRI imaging, otherwise recommends further serum studies to include TSH, vitamin B12, TSH, folate, vitamin B1, MMA, fasting lipids. She does not feel that CTA head and neck vessel imaging would be helpful. She does think an EEG would be helpful. EEG not available here, consider transfer, however their facilities are saturated. We will query other neurology capable facilities that could do EEG as well Reevaluation #2: [id number], case discussed with Neurology Dr. Beltran [facility], who has somewhat different opinion, feels that this is more likely volitional, versus transient global amnesia. He does not feel the patient requires LP. He has not feel the patient requires EEG at this time. Would agree with further imaging to include MRI brain without and with contrast, and serum studies recommended by the previous neurologist. He will further consult if patient is admitted here. This recommendation was related to patient/daughter, who would like to be admitted here, will contact hospitalist Reevaluation #3: [id number], case discussed with hospitalist Dr. Benjamin, accepts patient for admission to observation Vital Signs Vital signs: Vital Signs - 8 hr 11/03/23 17:06 11/03/23 17:42 11/03/23 17:43 Temperature 98.2 F Pulse Rate 80 72 Respiratory Rate 15 22 Blood Pressure 158/90 H 150/95 H Pulse Oximetry 99 Oxygen Delivery Method Room Air 11/03/23 17:43 11/03/23 18:00 11/03/23 18:00 Temperature Pulse Rate 70 72 Respiratory Rate 20 15 Blood Pressure 141/88 H Pulse Oximetry 96 96 Oxygen Delivery Method Room Air 11/03/23 18:38 11/03/23 19:00 11/03/23 19:30 Temperature Pulse Rate 63 72 71 Respiratory Rate 14 20 Blood Pressure Pulse Oximetry 98 98 Oxygen Delivery Method Room Air 11/03/23 20:02 11/03/23 20:30 11/03/23 20:58 Temperature Pulse Rate 83 72 Respiratory Rate 17 Blood Pressure 135/81 Pulse Oximetry 97 Oxygen Delivery Method 11/03/23 20:58 11/03/23 21:00 11/03/23 21:00 Temperature Pulse Rate 64 69 Respiratory Rate 13 18 Blood Pressure 144/77 H Pulse Oximetry 98 98 Oxygen Delivery Method MDM - Neuro Symptoms/Deficit Lab Data 11/04/23 04:45 11/03/23 17:30 Labs: Lab Results 11/03/23 11/03/23 11/03/23 Range/Units 17:30 17:56 18:18 WBC 8.8 (4.5-11.0) X10^3/uL RBC 4.37 (4.0-5.2) X10^6/uL Hgb 13.4 (12.0-16.0) g/dL Hct 39.2 (36-46) % MCV 89.9 (80-100) fL MCH 30.7 (26-34) PG MCHC 34.2 (30-36) % RDW 12.9 (11.6-14.8) % Plt Count 298 (150-400) X10^3/uL Neut % (Auto) 60.1 (50-75) % Lymph % (Auto) 31.1 (25-40) % [place] % (Auto) 6.4 (3-14) % Eos % (Auto) 2.0 (2-4) % Baso % (Auto) 0.4 (0-2) % Neut # (Auto) 5300 (8409-6119) /uL Lymph # (Auto) 2700 (6249-2806) /uL [place] # (Auto) 600 (0-900) /uL Eos # (Auto) 200 (0-450) /uL Baso # (Auto) 0 (0-100) /uL PT 11.3 (9.4-12.5) SECONDS INR 1.0 (0.9-1.3) APTT 36 (25.1-36.5) SECONDS Sodium 138 (137-145) mmol/L Potassium 3.8 (3.4-5.1) mmol/L Chloride 105 (98-107) mmol/L Carbon Dioxide 26 (22-32) mmol/L BUN 16 (7-17) mg/dL Creatinine 1.01 (0.52-1.04) mg/dL Estimated GFR > 60 (>60) mL/min BUN/Creatinine Ratio 15.8 (6-22) Glucose 115 H (70-100) mg/dL Calcium 9.2 (8.4-10.2) mg/dL Magnesium 2.1 (1.6-2.3) mg/dL Total Bilirubin 0.7 (0.2-1.3) mg/dL AST 26 (14-36) IU/L ALT 25 (<35) IU/L Alkaline Phosphatase 62 (38-126) U/L Total Creatine Kinase 73 (30-135) U/L Troponin I < 0.012 (0.01-0.034) ng/mL Total Protein 7.4 (6.3-8.2) g/dL Albumin 4.7 (3.5-5.0) g/dL Globulin 2.7 (1.7-4.1) g/dL Albumin/Globulin Ratio 1.7 (1.0-2.8) Vitamin B12 (239-931) pg/mL Folate (2.76-20.0) ng/mL TSH (0.47-4.68) uIU/mL Urine Test Negative (Negative) U Opiates 300ng/mL cut Negative (Negative) Ur Oxycodone Screen Negative (Negative) Urine Methadone Screen Negative (Negative) Ur Barbiturates Screen Negative (Negative) U Tricyclic Antidepress Negative (Negative) Ur Phencyclidine Scrn Negative (Negative) Ur Amphetamines Screen Negative (Negative) U Methamphetamines Scrn Negative (Negative) Ur MDMA Scrn (Ecstasy) Negative (Negative) U Benzodiazepines Scrn Negative (Negative) Urine Cocaine Screen Negative (Negative) U Marijuana (THC) Screen Negative (Negative) Urine pH Normal (Normal) Urine Specific [place] Normal (Normal) Ethyl Alcohol < 10 ( - 10) mg/dL Ur Creatinine Normal (Normal) 11/03/23 Range/Units 20:57 WBC (4.5-11.0) X10^3/uL RBC (4.0-5.2) X10^6/uL Hgb (12.0-16.0) g/dL Hct (36-46) % MCV (80-100) fL MCH (26-34) PG MCHC (30-36) % RDW (11.6-14.8) % Plt Count (150-400) X10^3/uL Neut % (Auto) (50-75) % Lymph % (Auto) (25-40) % [place] % (Auto) (3-14) % Eos % (Auto) (2-4) % Baso % (Auto) (0-2) % Neut # (Auto) (1604-6544) /uL Lymph # (Auto) (3312-4691) /uL [place] # (Auto) (0-900) /uL Eos # (Auto) (0-450) /uL Baso # (Auto) (0-100) /uL PT (9.4-12.5) SECONDS INR (0.9-1.3) APTT (25.1-36.5) SECONDS Sodium (137-145) mmol/L Potassium (3.4-5.1) mmol/L Chloride (98-107) mmol/L Carbon Dioxide (22-32) mmol/L BUN (7-17) mg/dL Creatinine (0.52-1.04) mg/dL Estimated GFR (>60) mL/min BUN/Creatinine Ratio (6-22) Glucose (70-100) mg/dL Calcium (8.4-10.2) mg/dL Magnesium (1.6-2.3) mg/dL Total Bilirubin (0.2-1.3) mg/dL AST (14-36) IU/L ALT (<35) IU/L Alkaline Phosphatase (38-126) U/L Total Creatine Kinase (30-135) U/L Troponin I (0.01-0.034) ng/mL Total Protein (6.3-8.2) g/dL Albumin (3.5-5.0) g/dL Globulin (1.7-4.1) g/dL Albumin/Globulin Ratio (1.0-2.8) Vitamin B12 584 (239-931) pg/mL Folate 9.3 (2.76-20.0) ng/mL TSH 2.15 (0.47-4.68) uIU/mL Urine Test (Negative) U Opiates 300ng/mL cut (Negative) Ur Oxycodone Screen (Negative) Urine Methadone Screen (Negative) Ur Barbiturates Screen (Negative) U Tricyclic Antidepress (Negative) Ur Phencyclidine Scrn (Negative) Ur Amphetamines Screen (Negative) U Methamphetamines Scrn (Negative) Ur MDMA Scrn (Ecstasy) (Negative) U Benzodiazepines Scrn (Negative) Urine Cocaine Screen (Negative) U Marijuana (THC) Screen (Negative) Urine pH (Normal) Urine Specific [place] (Normal) Ethyl Alcohol ( - 10) mg/dL Ur Creatinine (Normal) Point of Care Testing Test Results Negative Glucose POC 100 Urine Dip Bedside Urine Glucose Negative Bedside Urine Bilirubin - Negative Bedside Urine Ketone - Negative Urine Specific [place] 1.010 Bedside Urine Occult Blood - Negative Bedside Urine pH 6.0 Bedside Urine Protein - Negative Bedside Urine Urobilinogen - Negative Bedside Urine Nitrite - Negative Bedside Urine Leukocytes - Negative Esterase ECG Data Attestation: I personally reviewed and interpreted this ECG as follows: Prior ECG tracings: not available for review Interpretation: Normal sinus rhythm with rate 70, normal [place] QRS and QTC intervals, no obvious ST segment elevation changes. No comparisons located. [facility] Narrative Medical decision making narrative: Short-term amnesia recurrent events through the day today, no fever, sirs screen negative, not obviously intoxicated or at risk by history, no psychiatric diagnosis obvious, no known seizure, no known stroke, since 8:[address] head negative. Lab testing unremarkable including UDS and ethanol level. Normal sinus rhythm without ischemic changes on EKG. Concern for possible stroke or atypical absence seizures, versus other, we will consult Neurology. Stroke Core Measures Exclusion Criteria TPA in CVA: Symptom Onset >3 or 4.5 Hours Critical Care Time Critical Care Time Critical Care Time: Yes Total Critical Care Time: 35 Attestation: The high probability of a clinically significant, sudden or life threatening deterioration of the [neurovascular] system(s) required my full and direct attention, intervention and personal management. The aggregate critical care time was [35] minutes. This time is in addition to time spent performing reported procedures but includes the following: [X] Data Review and interpretation [X] Patient assessment and monitoring of vital signs [X] Documentation [X] Medication orders and management Discharge Plan Departure Patient Disposition: Admitted as Observation Clinical Impression: Memory changes, Transient global amnesia Admit Date/Time: 11/03/23 21:38 Admit Provider: Carl Ngo
[2023-11-03 18:30] LABS: Ethanol (ETOH) < 10 mg/dL
[2023-11-03 18:35] LABS: UR Morphine/Opiate cutoff 300 Negative (Negative); Ur Creatinine Normal (Normal); Ur Specific Gravity Normal (Normal); Urine Amphetamines Negative (Negative); Urine Barbiturates Negative (Negative); Urine Benzodiazepines Negative (Negative); Urine Cocaine Negative (Negative); Urine MDMA Negative (Negative); Urine Methadone Negative (Negative); Urine Methamphetamines Negative (Negative); Urine Oxycodone Negative (Negative); Urine Phencyclidine Negative (Negative); Urine Tetrahydrocannabinol Negative (Negative); Urine Tricyclic Antidepressant Negative (Negative); Urine pH Normal (Normal)
[2023-11-03 20:41] LABS: Pregnancy Test Urine Negative (Negative)
[2023-11-03 21:53] LABS: Thyroid Stimulating Hormone 2.15 uIU/mL (0.47-4.68)
[2023-11-03 22:33] LABS: Folate 9.3 ng/mL (2.76-20.0); Vitamin B12 Reflex MMA if <400 584 pg/mL (239-931)
--- NOTE | 2023-11-03 23:30 | P.HP_ITS ---
History of Present Illness History of Present Illness Date Patient Seen: 11/03/23 Time Patient Seen: 23:00 Chief complaint: confusion, sent by [facility] Narrative: 48 y/o presented to ED with her daughter complaining on multiple episodes of disorientation, short term memory loss that happened on the day of admission and used to happen sporadically over the past few days. PMH of depression on two antidepressants w/o recent changes. 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 [facility] Medical History (Updated 11/04/23 @ 08:04 by Carl Benjamin MD) Encounter for wellness examination in adult (01/20/21) Encounter for routine gynecological examination (01/20/21) Cervix abnormality History of abnormal cervical Pap smear Medication refill Greater trochanteric bursitis of right hip (~2017) Left shoulder pain (10/2018) HPV (human papilloma virus) infection Acne Anxiety Depression Surgical History History of cervical biopsy No history of previous surgery (06/2014) Social History household members: spouse Smoking Status: Former smoker quit status: considering quitting (Patient declines smoking cessation handout) second hand exposure: Yes alcohol intake: current substance use type: does not use Meds Home Medications and Allergies Home Medications Medication Instructions Recorded Confirmed Type acetaminophen 500 mg tablet 1,000 mg PO QID PRN Pain (Scale 03/23/19 11/03/23 History (Tylenol Extra Strength) Score 4-6) hydroxyzine pamoate 25 mg capsule 25 mg PO BID PRN panic #60 caps 07/29/21 11/03/23 Rx bupropion HCl 300 mg 24 hr tablet, 300 mg PO QAM #90 tabs 08/11/22 11/03/23 Rx extended release (Wellbutrin XL) paroxetine HCl 20 mg tablet 20 mg PO DAILY #90 tabs 08/11/22 11/03/23 Rx Allergies Allergy/AdvReac Type Severity Reaction Status Date / Time codeine Allergy Mild ITCHY Verified 11/03/23 17:06 Review of Systems Constitutional Comments: w/o chills, sweats or fever Eyes Comments: wo diplopia or vision changes Cardiovascular Comments: w/o palpitations Respiratory Comments: w/o SOB Neurologic Comments: see HPI. Without focal weakness or paresyhesia Psychiatric Comments: depression controlled with current antidepressants Exam Vital Signs (past 8 hours): - 11/03/23 17:06 11/03/23 17:42 11/03/23 17:43 Temperature 98.2 F Pulse Rate 80 72 Respiratory Rate 15 22 Blood Pressure 158/90 H 150/95 H Pulse Oximetry 99 Oxygen Delivery Method Room Air Oxygen Flow Rate 11/03/23 17:43 11/03/23 18:00 11/03/23 18:00 Temperature Pulse Rate 70 72 Respiratory Rate 20 15 Blood Pressure 141/88 H Pulse Oximetry 96 96 Oxygen Delivery Method Room Air Oxygen Flow Rate 11/03/23 18:38 11/03/23 19:00 11/03/23 19:30 Temperature Pulse Rate 63 72 71 Respiratory Rate 14 20 Blood Pressure Pulse Oximetry 98 98 Oxygen Delivery Method Room Air Oxygen Flow Rate 11/03/23 20:02 11/03/23 20:30 11/03/23 20:58 Temperature Pulse Rate 83 72 Respiratory Rate 17 Blood Pressure 135/81 Pulse Oximetry 97 Oxygen Delivery Method Oxygen Flow Rate 11/03/23 20:58 11/03/23 21:00 11/03/23 21:00 Temperature Pulse Rate 64 69 Respiratory Rate 13 18 Blood Pressure 144/77 H Pulse Oximetry 98 98 Oxygen Delivery Method Oxygen Flow Rate 11/03/23 21:30 11/03/23 21:30 11/03/23 22:00 Temperature Pulse Rate 72 Respiratory Rate 15 Blood Pressure 120/71 110/62 Pulse Oximetry 99 Oxygen Delivery Method Oxygen Flow Rate 11/03/23 22:00 11/03/23 22:20 Temperature 97.1 F L Pulse Rate 72 64 Respiratory Rate 15 17 Blood Pressure 123/81 Pulse Oximetry 97 99 Oxygen Delivery Method Oxygen Flow Rate 0 Oxygen Delivery Method Room Air Oxygen Flow Rate 0 Const Other: In no distress, sitting in bed HENMT Other: normocephalic Eyes Other: EOMI Resp Other: normal respiratory effort Cardio Other: RRR GI Other: not distended Skin Other: w/o rashes Neuro Other: There are no focal deficits Psych Other: appropriate mood Objective Labs 11/04/23 04:45 11/03/23 17:30 Labs: Laboratory Results - last 24 hr 11/03/23 11/03/23 11/03/23 17:30 17:56 18:18 WBC 8.8 RBC 4.37 Hgb 13.4 Hct 39.2 MCV 89.9 MCH 30.7 MCHC 34.2 RDW 12.9 Plt Count 298 Neut % (Auto) 60.1 Lymph % (Auto) 31.1 [place] % (Auto) 6.4 Eos % (Auto) 2.0 Baso % (Auto) 0.4 Neut # (Auto) 5300 Lymph # (Auto) 2700 [place] # (Auto) 600 Eos # (Auto) 200 Baso # (Auto) 0 PT 11.3 INR 1.0 APTT 36 Sodium 138 Potassium 3.8 Chloride 105 Carbon Dioxide 26 BUN 16 Creatinine 1.01 Estimated GFR > 60 BUN/Creatinine Ratio 15.8 Glucose 115 H Calcium 9.2 Magnesium 2.1 Total Bilirubin 0.7 AST 26 ALT 25 Alkaline Phosphatase 62 Total Creatine Kinase 73 Troponin I < 0.012 Total Protein 7.4 Albumin 4.7 Globulin 2.7 Albumin/Globulin Ratio 1.7 Vitamin B12 Folate TSH Urine Test Negative U Opiates 300ng/mL cut Negative Ur Oxycodone Screen Negative Urine Methadone Screen Negative Ur Barbiturates Screen Negative U Tricyclic Antidepress Negative Ur Phencyclidine Scrn Negative Ur Amphetamines Screen Negative U Methamphetamines Scrn Negative Ur MDMA Scrn (Ecstasy) Negative U Benzodiazepines Scrn Negative Urine Cocaine Screen Negative U Marijuana (THC) Screen Negative Urine pH Normal Urine Specific [place] Normal Ethyl Alcohol < 10 Ur Creatinine Normal 11/03/23 20:57 WBC RBC Hgb Hct MCV MCH MCHC RDW Plt Count Neut % (Auto) Lymph % (Auto) [place] % (Auto) Eos % (Auto) Baso % (Auto) Neut # (Auto) Lymph # (Auto) [place] # (Auto) Eos # (Auto) Baso # (Auto) PT INR APTT Sodium Potassium Chloride Carbon Dioxide BUN Creatinine Estimated GFR BUN/Creatinine Ratio Glucose Calcium Magnesium Total Bilirubin AST ALT Alkaline Phosphatase Total Creatine Kinase Troponin I Total Protein Albumin Globulin Albumin/Globulin Ratio Vitamin B12 584 Folate 9.3 TSH 2.15 Urine Test U Opiates 300ng/mL cut Ur Oxycodone Screen Urine Methadone Screen Ur Barbiturates Screen U Tricyclic Antidepress Ur Phencyclidine Scrn Ur Amphetamines Screen U Methamphetamines Scrn Ur MDMA Scrn (Ecstasy) U Benzodiazepines Scrn Urine Cocaine Screen U Marijuana (THC) Screen Urine pH Urine Specific [place] Ethyl Alcohol Ur Creatinine Assessment & Plan Assessment and plan (1) Memory loss, short term: Status: Acute (2) Depression: Status: Acute Assessment & Plan narrative: 1. Episodic disorientation, short term memory loss - CTH unremarkable - MRI with and without contrast - neurology consultation 2. Depression - Wellbutrin, Paxil DVT prophylaxis - SCDs
[2023-11-04] VITALS: BP 125/76; PULSE 68; RESP 18; TEMP 36.3; O2SAT 99
[2023-11-04 04:00] VITALS: BP 142/62; PULSE 83; RESP 19; TEMP 36.3; O2SAT 97
[2023-11-04 05:20] LABS: Add Manual Diff / Slide Review NO; Basophils Absolute Auto 0 /uL (0-100); Basophils Percent Auto 0.4 % (0-2); Eosinophils Absolute Auto 200 /uL (0-450); Eosinophils Percent Auto 2.4 % (2-4); Hematocrit 38.9 % (36-46); Hemoglobin 13.3 g/dL (12.0-16.0); Lymphocytes Absolute Auto 2500 /uL (1100-4500); Lymphocytes Percent Auto 37.2 % (25-40); Mean Corpuscular HGB Conc 34.2 % (30-36); Mean Corpuscular Hemoglobin 30.7 PG (26-34); Monocytes Absolute Auto 500 /uL (0-900); Monocytes Percent Auto 7.7 % (3-14); Neutrophils Absolute Auto 3600 /uL (1500-7000); Neutrophils Percent Auto 52.3 % (50-75); Platelet Count 274 X10^3/uL (150-400); Red Blood Cell Count 4.32 X10^6/uL (4.0-5.2); Red Cell Distribution Width 12.7 % (11.6-14.8); White Blood Cell Count 6.8 X10^3/uL (4.5-11.0)
[2023-11-04 08:00] VITALS: BP 130/68; PULSE 70; RESP 16; TEMP 36.4; O2SAT 99
[2023-11-04] MEDS: buPROPion XL 150 MG TAB 300 MG PO (08:39)
[2023-11-04] MEDS: PARoxetine 20 MG TABLET PO (08:39)
[2023-11-04] MEDS: LORazepam 0.5 MG TABLET PO (09:43)
[2023-11-04 12:00] VITALS: BP 118/73; PULSE 69; RESP 16; TEMP 36.4; O2SAT 98
--- NOTE | 2023-11-04 14:42 | CM.DANOTE ---
Initial DCP Assessment Note Pt is a 48 yo female, resident of [place], arrives with her daughter, complaining of multiple episodes of disorientation and short term memory loss. MRI with and without contrast, consultation with neurology PCP: Qasim Thomas Payer: [facility], [facility]–1983 Reviewed chart, pt discussed in multidisciplinary rounds this morning. Etiology for short term memory loss remains unknown. Work up continues. No barriers identified at this time to patient's safe discharge home w/family to assist once medically cleared to do so. CM team will plan to follow closely in case any DC needs or concerns arise. RODOLFO Sweeney Discharge Planning/Care Management CM Discharge Assessment Start: 11/04/23 14:39 Freq: Status: Active Protocol: Document 11/04/23 14:39 SOFIA (Rec: 11/04/23 14:42 SOFIA [id number]) Discharge Planning Assessment Assigned E Learning Designer RODOLFO Quigley DPOA/Assigned Designee Name Spouse Duy Crook Contact Information [phone] Advance Directives? No History Provided By Patient,Medical Record Prior Living Arrangements House Household Members spouse Type of transporation used prior to Drives own vehicle admit Independent with ADL's Yes Is patient alert and oriented? Yes Barriers to Discharge No Discharge Plan Home Transportation Arrangement Family Referrals Initiated None needed
--- NOTE | 2023-11-04 15:42 | PM.DS.1 ---
History of Present Illness History of Present Illness Chief complaint: confusion, sent by [facility] Narrative: 48 y/o presented to ED with her daughter complaining on multiple episodes of disorientation, short term memory loss that happened on the day of admission and used to happen sporadically over the past few days. PMH of depression on two antidepressants w/o recent changes. 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 Discharge Providers Provider Date of admission: 11/03/23 21:38 Discharge Date: 11/04/23 Primary care physician: QUIN Millard Discharge provider: Constantine Carbajal DO Summary Hospital Course Discharge Diagnosis: (1) Memory loss, short term: Status: Acute (2) Depression: Status: Acute Hospital Course: Admitted for episodes of short term memory loss. Blood work all reassuring. Patient unable to tolerate MRI. After discussion she elected to discharge home and follow-up with her PCP if this reoccurs again in the future. Exam Vital Signs (past 8 hours): - 11/04/23 08:00 11/04/23 12:00 Temperature 97.5 F L 97.6 F Pulse Rate 70 69 Respiratory Rate 16 16 Blood Pressure 130/68 118/73 Pulse Oximetry 99 98 Oxygen Delivery Method Room Air Oxygen Flow Rate 0 Const Other: In no distress, sitting in bed HENMT Other: normocephalic Eyes Other: EOMI Resp Other: normal respiratory effort Cardio Other: RRR GI Other: not distended Skin Other: w/o rashes Neuro Other: There are no focal deficits Psych Other: appropriate mood Objective Labs 11/04/23 04:45 11/03/23 17:30 Labs: Laboratory Results - last 24 hr 11/03/23 11/03/23 11/03/23 17:30 17:56 18:18 WBC 8.8 RBC 4.37 Hgb 13.4 Hct 39.2 MCV 89.9 MCH 30.7 MCHC 34.2 RDW 12.9 Plt Count 298 Neut % (Auto) 60.1 Lymph % (Auto) 31.1 [place] % (Auto) 6.4 Eos % (Auto) 2.0 Baso % (Auto) 0.4 Neut # (Auto) 5300 Lymph # (Auto) 2700 [place] # (Auto) 600 Eos # (Auto) 200 Baso # (Auto) 0 PT 11.3 INR 1.0 APTT 36 Sodium 138 Potassium 3.8 Chloride 105 Carbon Dioxide 26 BUN 16 Creatinine 1.01 Estimated GFR > 60 BUN/Creatinine Ratio 15.8 Glucose 115 H Calcium 9.2 Magnesium 2.1 Total Bilirubin 0.7 AST 26 ALT 25 Alkaline Phosphatase 62 Total Creatine Kinase 73 Troponin I < 0.012 Total Protein 7.4 Albumin 4.7 Globulin 2.7 Albumin/Globulin Ratio 1.7 Vitamin B12 Folate TSH Urine Test Negative U Opiates 300ng/mL cut Negative Ur Oxycodone Screen Negative Urine Methadone Screen Negative Ur Barbiturates Screen Negative U Tricyclic Antidepress Negative Ur Phencyclidine Scrn Negative Ur Amphetamines Screen Negative U Methamphetamines Scrn Negative Ur MDMA Scrn (Ecstasy) Negative U Benzodiazepines Scrn Negative Urine Cocaine Screen Negative U Marijuana (THC) Screen Negative Urine pH Normal Urine Specific [place] Normal Ethyl Alcohol < 10 Ur Creatinine Normal 11/03/23 11/04/23 20:57 04:45 WBC 6.8 RBC 4.32 Hgb 13.3 Hct 38.9 MCV 90.0 MCH 30.7 MCHC 34.2 RDW 12.7 Plt Count 274 Neut % (Auto) 52.3 Lymph % (Auto) 37.2 [place] % (Auto) 7.7 Eos % (Auto) 2.4 Baso % (Auto) 0.4 Neut # (Auto) 3600 Lymph # (Auto) 2500 [place] # (Auto) 500 Eos # (Auto) 200 Baso # (Auto) 0 PT INR APTT Sodium Potassium Chloride Carbon Dioxide BUN Creatinine Estimated GFR BUN/Creatinine Ratio Glucose Calcium Magnesium Total Bilirubin AST ALT Alkaline Phosphatase Total Creatine Kinase Troponin I Total Protein Albumin Globulin Albumin/Globulin Ratio Vitamin B12 584 Folate 9.3 TSH 2.15 Urine Test U Opiates 300ng/mL cut Ur Oxycodone Screen Urine Methadone Screen Ur Barbiturates Screen U Tricyclic Antidepress Ur Phencyclidine Scrn Ur Amphetamines Screen U Methamphetamines Scrn Ur MDMA Scrn (Ecstasy) U Benzodiazepines Scrn Urine Cocaine Screen U Marijuana (THC) Screen Urine pH Urine Specific [place] Ethyl Alcohol Ur Creatinine [facility] Medical History (Updated 11/04/23 @ 08:04 by Carl Benjamin MD) Encounter for wellness examination in adult (01/20/21) Encounter for routine gynecological examination (01/20/21) Cervix abnormality History of abnormal cervical Pap smear Medication refill Greater trochanteric bursitis of right hip (~2017) Left shoulder pain (10/2018) HPV (human papilloma virus) infection Acne Anxiety Depression Surgical History History of cervical biopsy No history of previous surgery (06/2014) Social History household members: spouse Smoking Status: Former smoker quit status: considering quitting (Patient declines smoking cessation handout) second hand exposure: Yes alcohol intake: current substance use type: does not use Discharge Plan Discharge Plan Patient Disposition: Home Discharge orders & Medications Prescriptions: Continued hydroxyzine pamoate 25 mg capsule 25 mg PO BID PRN (Reason: panic) Qty: 60 0RF Rx Instructions: may make drowsy, do not drive bupropion HCl [Wellbutrin XL] 300 mg tablet extended release 24 hr 300 mg PO QAM Qty: 90 3RF paroxetine HCl 20 mg tablet 20 mg PO DAILY Qty: 90 3RF acetaminophen [Tylenol Extra Strength] 500 mg tablet 1,000 mg PO QID PRN (Reason: Pain (Scale Score 4-6)) Follow up/Referrals: Qasim Thomas ARNP [Primary Care Provider] - 1 Week Visit Report/Discharge Packet Stand Alone Forms: Patient Portal/API, Stroke Signs & Symptoms Discharge Data Primary Care Provider: Qasim Thomas Attending Provider: Carl Ngo Admcarlin Date/Time: 11/03/23 21:38
--- NOTE | 2023-11-04 16:44 | PC.NURSE ---
Patient is A&Ox3, VSS, afebrile on RA. She is NSR on telemetry. NIH 0. She ambulates in the room independently. She denies SWANSON, N/V, dizziness, SOB, palpitations, CP or neuro deficits. She is unable to complete MRI this a.m. MD Carbajal discuses pt options at bedside, and she states she would like to go home and follow up with PCP if any of her initial symptoms reoccur. She is escorted out of hospital with her mom and all of her personal belongings at 1610 this afternoon.
[2023-11-08 01:08] LABS: Vitamin B1 139.6 nmol/L (66.5-200.0)
== END 2023-11-04 16:10 | disposition home or self-care (01) ==
LOC: ED 18:10 → AC 21:41
PROVIDERS: Emergency Medicine; Admitting Provider Internal Medicine; Emergency Provider Emergency Medicine; PCP Registered Nurse Diabetes Educator; Referring Provider Emergency Medicine; Visit Provider Internal Medicine
DX: R41.3 Other amnesia (principal); R41.0 Disorientation, unspecified; F32.A Depression, unspecified; F17.210 Nicotine dependence, cigarettes, uncomplicated
CPT/HCPCS: 36415; 70450; 71045; 80053; 80305; 80320; 81003; 81025; 82550; 82607; 82746; 82962; 83735; 84425; 84443; 84484; 85025; 85610; 85730; 87040; 93005; 93010; 99285; 99291; G0378

== ENCOUNTER → 2024-01-26 07:57 | Outpatient (CLI) | payer OTHER, SELFPAY ==
[2023-11-03 22:24] VITALS: BMI 38.7
--- NOTE | 2024-01-26 | DI.MG.S_ITS ---
BILATERAL DIGITAL SCREENING MAMMOGRAM 3D/2D WITH CAD: 01/26/2024 CLINICAL: Routine screening. Family history of breast cancer. Comparison is made to exams dated: 08/17/2022 mammogram, 06/09/2021 mammogram, and 05/01/2019 mammogram - [facility]. There are scattered areas of fibroglandular density in both breasts (category b / 25%-50% glandular tissue). Current study was also evaluated with a Computer Aided Detection (CAD) system. No significant masses, calcifications, or other findings are seen in either breast. There has been no significant interval change. IMPRESSION: NEGATIVE There is no mammographic evidence of malignancy. A 1 year screening mammogram is recommended. Based on the Tyrer Cuzick model (a risk assessment model) the patient's lifetime risk is 7.5% and her 10 year risk is 1.7%. According to the ACR, ACS, and NCCN guidelines, an annual breast MRI exam along with mammogram is recommended if the patient's lifetime risk is 20% or greater. This exam was interpreted at Station ID: [id number]. NOTE: For mammograms, a report in lay terms will be sent to the patient. Approximately 15% of breast malignancies will not be visualized mammographically. In the management of a palpable breast mass, a negative mammogram must not discourage biopsy of a clinically suspicious lesion. Electronically Signed By: Jessenia hill/bhargav:01/26/2024 16:38:16 letter sent: Normal Exam ACR BI-RADS Category 1: Negative [id number]
== END ==
PROVIDERS: PCP Registered Nurse Diabetes Educator; Referring Provider Registered Nurse Diabetes Educator; Visit Provider Registered Nurse Diabetes Educator
DX: Z12.31 Encounter for screening mammogram for malignant neoplasm of breast (principal); Z80.3 Family history of malignant neoplasm of breast; R92.323 Mammographic fibroglandular density, bilateral breasts
CPT/HCPCS: 77063; 77067

== ENCOUNTER → 2025-03-01 17:41 | Outpatient (CLI) | payer OTHER, SELFPAY ==
[2023-11-03 22:24] VITALS: BMI 38.7
--- NOTE | 2025-03-01 17:43 | DI.MG.S_ITS ---
MM screening mammo BI: 03/01/2025. BI-RADS: 1 CLINICAL: 49-year old female for bilateral screening mammogram. Tyrer-Cuzick lifetime risk of 6.7%. No personal or first-degree family history of breast cancer. PRIOR EXAMS 01/26/2024, 08/17/2022, 06/09/2021, 05/01/2019. MAMMOGRAPHY TECHNIQUE: 2D and 3D (tomosynthesis) digital mammographic views obtained, with additional images as needed for full coverage. Current study was also evaluated with a Computer Aided Detection (CAD) system. DENSITY B. There are scattered areas of fibroglandular density. MAMMOGRAPHY FINDINGS Bilateral: No suspicious mass, asymmetry, microcalcification, or other abnormality seen. IMPRESSION: * No evidence of malignancy. RECOMMENDATIONS Bilateral * Annual screening mammography. OVERALL ASSESSMENT CATEGORY BI-RADS-1: Negative. The [employer] recommends annual screening mammography beginning at age 40 for women with average risk of breast cancer. ELECTRONICALLY SIGNED: Ifeanyi Moreau M.D. on 03/03/2025 at 09:00:11 AM PT Interpreting Station ID: [id number]
== END ==
LOC: MAMMO 17:42
PROVIDERS: PCP Registered Nurse Diabetes Educator; Referring Provider Registered Nurse Diabetes Educator; Visit Provider Registered Nurse Diabetes Educator
DX: Z12.31 Encounter for screening mammogram for malignant neoplasm of breast (principal)
CPT/HCPCS: 77063; 77067

== ENCOUNTER → 2025-03-13 08:53 | Outpatient (CLI) | payer OTHER, SELFPAY ==
[2023-11-03 22:24] VITALS: BMI 38.7
--- NOTE | 2025-03-13 08:55 | DI.RAD.S_ITS ---
PROCEDURE: XR THORACIC SPINE 3V INDICATIONS: eval pain in T-spine, lumbosacral spine, poss radiculopathy TECHNIQUE: 3 views of the thoracic spine were acquired. COMPARISON: [facility], , XR THORACIC SPINE 3V, 08/13/2022, 8:46. FINDINGS: Thoracic spine curvature and alignment: Slight rightward curve appreciated Bones: Minimal chronic wedging all thoracic vertebral bodies endplate irregularities most compatible with chronic Scheuermann's disease. Osteoporosis not excluded Disc spaces: Moderate degenerative disc disease seen at each thoracic level with bridging and osteophytes. No change Osteophytes. Slight progression from 2022 Soft tissues: No soft tissue swelling, calcification or mass. IMPRESSION: Degeneration Dictated by: John Bedolla M.D. on 03/13/2025 at 12:39 Approved by: John Bedolla M.D. on 03/13/2025 at 12:40
--- NOTE | 2025-03-13 08:55 | DI.RAD.S_ITS ---
PROCEDURE: XR LUMBAR SPINE MIN 4V INDICATIONS: eval pain in T-spine, lumbosacral spine, poss radiculopathy TECHNIQUE: 5 views of the lumbar spine were acquired, including bilateral oblique views. COMPARISON: None. FINDINGS: Lumbar spine curvature and alignment: Slight rightward curve lower thoracic and upper lumbar spine. Bones: There are no osseous abnormalities. Disc spaces: Moderate degenerative disc disease T11-T12 through L4-5 mild L5-S1 degenerative disc disease. moderate L3-4 through L5-S1 degenerative facet disease Soft tissues: No soft tissue swelling, calcification or mass. IMPRESSION: Degeneration Dictated by: John Bedolla M.D. on 03/13/2025 at 12:37 Approved by: John Bedolla M.D. on 03/13/2025 at 12:37
--- NOTE | 2025-03-13 08:55 | DI.RAD.S_ITS ---
PROCEDURE: XR HIP W PEL IF DONE RT 2V INDICATIONS: eval pain in T-spine, lumbosacral spine, poss radiculopathy TECHNIQUE: Two views of the left hip were acquired FINDINGS: Bones: There are no osseous abnormalities. SI and hip joints: Mild bilateral hip degeneration noted. SI joints normal. Moderate L5-S1 degenerative disc and facet disease Soft tissues: No soft tissue swelling, calcification or mass. IMPRESSION: Degeneration Dictated by: John Bedolla M.D. on 03/13/2025 at 12:38 Approved by: John Bedolla M.D. on 03/13/2025 at 12:38
== END ==
PROVIDERS: PCP Registered Nurse Diabetes Educator; Referring Provider Registered Nurse Diabetes Educator; Visit Provider Registered Nurse Diabetes Educator
DX: M51.14 Intervertebral disc disorders with radiculopathy, thoracic region (principal); M51.16 Intervertebral disc disorders with radiculopathy, lumbar region; M51.17 Intervertebral disc disorders with radiculopathy, lumbosacral region; M47.26 Other spondylosis with radiculopathy, lumbar region; M47.27 Other spondylosis with radiculopathy, lumbosacral region; M16.0 Bilateral primary osteoarthritis of hip; M25.551 Pain in right hip; M54.9 Dorsalgia, unspecified
CPT/HCPCS: 72072; 72110; 73502

== ENCOUNTER → 2025-03-13 11:56 | Outpatient (CLI) | payer OTHER, SELFPAY ==
[2023-11-03 22:24] VITALS: BMI 38.7
--- NOTE | 2025-03-13 11:57 | DI.US.S_ITS ---
PROCEDURE: US PERIPH VENOUS LOW EXTREM RT INDICATIONS: POSTERIOR KNEE PAIN TECHNIQUE: Real-time imaging, as well as color and pulse Doppler interrogation, were performed of the lower extremity deep veins from the inguinal ligament to the popliteal fossa, with documentation of the visualized calf veins. COMPARISON: None. FINDINGS: The common femoral, femoral, popliteal, and the visualized calf veins are normally compressible, and free of intraluminal thrombus. Color and pulse Doppler demonstrate normal phasic intraluminal flow. There is normal augmentation response to distal compression maneuver. A Cerda's cyst is seen measuring 5.6 x 1.1 x 3.8 cm. IMPRESSION: No findings of lower extremity deep venous thrombosis. Dictated by: Tony Cabral M.D. on 03/13/2025 at 11:44 Approved by: Tony Cabral M.D. on 03/13/2025 at 11:44
== END ==
PROVIDERS: PCP Registered Nurse Diabetes Educator; Referring Provider Registered Nurse Diabetes Educator; Visit Provider Registered Nurse Diabetes Educator
DX: M79.604 Pain in right leg (principal); M71.21 Synovial cyst of popliteal space [Baker], right knee; M51.14 Intervertebral disc disorders with radiculopathy, thoracic region; M51.16 Intervertebral disc disorders with radiculopathy, lumbar region; M51.17 Intervertebral disc disorders with radiculopathy, lumbosacral region; M47.26 Other spondylosis with radiculopathy, lumbar region; M47.27 Other spondylosis with radiculopathy, lumbosacral region; M16.0 Bilateral primary osteoarthritis of hip; M25.551 Pain in right hip; M54.9 Dorsalgia, unspecified
CPT/HCPCS: 72072; 72110; 73502; 93971

== ENCOUNTER → 2025-03-22 16:19 | Outpatient (CLI) | payer OTHER, SELFPAY ==
[2023-11-03 22:24] VITALS: BMI 38.7
--- NOTE | 2025-03-22 16:21 | DI.RAD.S_ITS ---
PROCEDURE: XR KNEE RT 3V INDICATIONS: Cerda's cyst, RT knee posterior pain TECHNIQUE: 3 views of the knee were acquired. COMPARISON: None. FINDINGS: Bones: No fractures or dislocations. There is mild tricompartmental osteoarthritis with slight joint space narrowing and subchondral sclerosis. No patellar subluxation. No suspicious bony lesions. Soft tissues: No joint effusion. No suspicious soft tissue calcifications. IMPRESSION: No acute right knee fracture or dislocation. Mild tricompartmental osteoarthritis. No significant joint effusion. Dictated by: Ab Manuel M.D. on 03/23/2025 at 15:07 Approved by: Ab Manuel M.D. on 03/23/2025 at 15:10
== END ==
PROVIDERS: PCP Registered Nurse Diabetes Educator; Referring Provider Registered Nurse Diabetes Educator; Visit Provider Registered Nurse Diabetes Educator
DX: M17.12 Unilateral primary osteoarthritis, left knee (principal); M54.10 Radiculopathy, site unspecified; M79.604 Pain in right leg; M71.21 Synovial cyst of popliteal space [Baker], right knee
CPT/HCPCS: 73562

== ENCOUNTER → 2025-03-27 11:12 | Outpatient (CLI) | payer OTHER, SELFPAY ==
[2023-11-03 22:24] VITALS: BMI 38.7
--- NOTE | 2025-03-27 11:13 | DI.RAD.S_ITS ---
PROCEDURE: XR DEXA AXIAL SKELETON INDICATIONS: eval, concern for osteoporosis noted on recent T-spine films COMPARISON: None. FINDINGS: Lumbar Spine: Bone mineral density 1.195 g/cm2, T score 1.3. Left Femoral Neck: Bone mineral density is 0.713 g/cm2, T score -1.2. Left Hip: Bone mineral density is 0.967 g/cm2, T score 0.2. Fracture Risk Calculation (when applicable): 10-year fracture risk of a major osteoporotic fracture 7.4 percent and of a hip fracture 0.5 percent. Fracture probability medial or the patient has received treatment. (T score greater or equal to -1.0 to: NORMAL) (T score from -1.1 to -2.4: OSTEOPENIA) (T score less than or equal to -2.5: OSTEOPOROSIS) IMPRESSION: 1. Lumbar spine: Normal mineralization: Consider a repeat DEXA in 5 years or sooner, or if there is a new clinical indication. 2. Left femoral neck: Osteopenia: Consider a repeat DEXA in 2-3 years to reassess this patient's status, or if there is a new clinical indication. All treatment decisions require clinical judgment and consideration of individual patient factors, including patient preferences, comorbidities, previous drug use, risk factors not captured in the FRAX model (e.g., frailty, falls, vitamin D deficiency, increased bone turnover, interval significant decline in bone density ) and possible under- or over-estimation of fracture risk by FRAX. In addition, the NOF Guide recommends that FDA-approved medical therapies be considered in postmenopausal women and men age >= 50 years with a: * Hip or vertebral (clinical or morphometric) fracture * T-score of <=-2.5 at the spine or hip * Ten-year fracture probability by FRAX of >= 3% for hip fracture or >=20% for major osteoporotic fracture. Dictated by: Nani Millan RR Interpreted: Morgan Vernon MD on 03/27/2025 at 16:32 Transcribed by: RAJANI on 03/27/2025 at 16:33 Approved by: Morgan Vernon M.D. on 03/29/2025 at 8:27
== END ==
LOC: RAD 11:13
PROVIDERS: PCP Registered Nurse Diabetes Educator; Referring Provider Registered Nurse Diabetes Educator; Visit Provider Registered Nurse Diabetes Educator
DX: M85.89 Other specified disorders of bone density and structure, multiple sites (principal)
CPT/HCPCS: 77080

== ENCOUNTER → 2025-05-10 07:17 | Outpatient (CLI) | payer OTHER, SELFPAY ==
[2023-11-03 22:24] VITALS: BMI 38.7
[2025-05-10 07:40] LABS: Hematocrit 40.0 % (36-46); Hemoglobin 13.6 g/dL (12.0-16.0); Mean Corpuscular HGB Conc 34.0 % (30-36); Mean Corpuscular Hemoglobin 30.3 PG (26-34); Mean Corpuscular Volume 89.2 fL (80-100); Platelet Count 283 X10^3/uL (150-400)
[2025-05-10 07:46] LABS: Hemoglobin A1C% w Est Avg Glu 5.4 % (4.0-6.0)
[2025-05-10 08:26] LABS: Alanine Aminotransferase 20 IU/L (<35); Albumin 4.4 g/dL (3.5-5.0); Albumin Globulin Ratio 1.8 (1.0-2.8); Alkaline Phosphatase 61 U/L (38-126); Blood Urea Nitrogen 21 mg/dL (7-17); Calcium 9.5 mg/dL (8.4-10.2); Carbon Dioxide 27 mmol/L (22-32); Chloride 107 mmol/L (98-107); Cholesterol 169 mg/dL (140-199); Estimated Glomerular Filt Rate > 60 mL/min (>60); Globulin 2.5 g/dL (1.7-4.1); Glucose 116 mg/dL (70-99); HDL Cholesterol 86 mg/dL (40-60); HEMOLYSIS < 15 (0-50); Potassium 4.6 mmol/L (3.4-5.1); Sodium 142 mmol/L (137-145); Total Protein 6.9 g/dL (6.3-8.2); Triglycerides 51 mg/dL (35-150)
[2025-05-10 08:43] LABS: Free T4, Direct Thyroxine 0.96 ng/dL (0.78-2.19); Vitamin D 25 Hydroxy (D3) 26.1 ng/mL (30.0-100.0)
[2025-05-10 08:57] LABS: Thyroid Stimulating Hormone 2.04 uIU/mL (0.47-4.68)
== END ==
PROVIDERS: PCP Registered Nurse Diabetes Educator; Referring Provider Registered Nurse Diabetes Educator; Visit Provider Registered Nurse Diabetes Educator
DX: Z00.00 Encounter for general adult medical examination without abnormal findings (principal); R53.83 Other fatigue; E66.811 Obesity, class 1
CPT/HCPCS: 36415; 80053; 80061; 82306; 83036; 84439; 84443; 85027